=== PATIENT | male | born 1980 | race Hispanic/Latino ===

== ENCOUNTER 2020-03-31 00:26 | Inpatient (IN) | payer MEDICAID ==
--- NOTE | 2020-03-31 00:32 | Emergency Department Report ---
ED General Adult HPI - General Chief complaint: Dyspnea/Respdistress Stated complaint: DIFFICULTY BREATHING PUI?: Yes Source: patient, EMS (Verbal report received from emergency medical services. EMS documentation not available at time of chart dictation ), RN notes reviewed Mode of arrival: Stretcher Limitations: Physical Limitation - History of Present Illness Initial comments: Patient is a 39-year-old gentleman. He is not known to myself previously. He has a history of obesity, possible asthma, and psychiatric disease. He is brought to the hospital by emergency medical services with a complaint of shortness of breath. Apparently, patient was hypoxic in the field to 85%. He was given steroids, magnesium, and albuterol. In the emergency room, patient placed on isolation right away. I had on full personal protective equipment when examining this patient. On BiPAP, he was saturating at 98% on room air and speaking in complete sentences. He complained of nonspecific shortness of breath. He is a poor historian. He denies trauma. He is not sure if he is having fever. The patient could not answer whether or not he was socially isolating. The patient is a poor historian. He is not accompanied by friends or family at this time for additional information or collateral information. Clinically though, much improved on BiPAP therapy with appropriate medical therapy. -: unknown Consistency: constant Improves with: none Worsens with: none - Related Data Home Medications Medication Instructions Recorded Confirmed Last Taken Divalproex ER [Depakote ER] 500 mg PO BID 04/18/15 04/18/15 Unknown Quetiapine Fumarate [SEROquel] 04/18/15 04/18/15 2 Years Ago ~04/18/13 Allergies Allergy/AdvReac Type Severity Reaction Status Date / Time adhesive Allergy Rash Verified 11/30/14 04:32 ketorolac tromethamine Allergy Hives Verified 11/30/14 04:32 [From Toradol] tramadol HCl [From Ultram] Allergy Hives Verified 11/30/14 04:32 ED Review of Systems ROS: Stated complaint: DIFFICULTY BREATHING Other details as noted in HPI Comment: Unobtainable due to pts medical conditions Constitutional: malaise, weakness Respiratory: cough, shortness of breath, wheezing ED Past Medical Hx - Past Medical History Hx Renal Disease: Yes (Acute Renal Failure 2005) Hx Psychiatric Treatment: Yes (Can't recall where or when) Hx Asthma: Yes Additional medical history: ulcers. heart murmur. fall w/back injury 09/2015 - Social History Smoking Status: Never Smoker Substance Use Type: None - Medications Home Medications: Home Medications Medication Instructions Recorded Confirmed Last Taken Type Divalproex ER [Depakote ER] 500 mg PO BID 04/18/15 04/18/15 Unknown History Quetiapine Fumarate [SEROquel] 04/18/15 04/18/15 2 Years Ago History ~04/18/13 ED Physical Exam - General Limitations: Physical Limitation General appearance: anxious, in distress, obese - Head Head exam: Present: atraumatic, normocephalic - Eye Eye exam: Present: normal appearance - ENT ENT exam: Present: normal exam, mucous membranes moist, normal external ear exam - Neck Neck exam: Present: normal inspection, full ROM. Absent: tenderness, meni ngismus - Respiratory Respiratory exam: Present: wheezes, rales, rhonchi, accessory muscle use. Absent: respiratory distress, stridor - Cardiovascular Cardiovascular Exam: Present: normal rhythm, tachycardia, normal heart sounds. Absent: systolic murmur, diastolic murmur, rubs, gallop - GI/Abdominal GI/Abdominal exam: Present: soft. Absent: distended, tenderness, guarding, rebo und, rigid, pulsatile mass - Rectal Rectal exam: Present: deferred - Extremities Exam Extremities exam: Present: normal inspection, full ROM, pedal edema, other (2+ pulses noted in the bilateral upper and lower extremities. There is no palpable cord. negative Homans sign. Muscular compartments are soft. The pelvis is stable.). Absent: calf tenderness - Back Exam Back exam: Present: normal inspection. Absent: tenderness, CVA tenderness (R), CVA tenderness (L), paraspinal tenderness, vertebral tenderness - Neurological Exam Neurological exam: Present: alert, other (No facial droop. Tongue midline. Extraocular movements intact bilaterally. Facial sensation intact to light touch in V1, V2, V3 distribution bilaterally. 5 and a 5 strength in 4 extremities. Sensation intact to light touch in 4 extremities.) - Psychiatric Psychiatric exam: Present: anxious - Skin Skin exam: Present: warm, dry, intact, normal color. Absent: rash ED Course Vital Signs 03/31/20 03/31/20 03/31/20 00:37 01:01 01:47 Temperature 98.2 F Pulse Rate 135 H 136 H Pulse Rate [ 130 H Bilateral] Respiratory 34 H 22 Rate Respiratory 22 Rate [Bilateral ] Blood Pressure 194/72 169/91 Blood Pressure 194/72 [Right] O2 Sat by Pulse 99 99 Oximetry - Reevaluation(s) Reevaluation #1: 03/31/20 02:20 Differential diagnosis, including but not limited to: Pneumonia, novel coronavirus, fluid overload, asthma exacerbation, multifactorial respiratory failure Assessment and plan: 39-year-old gentleman who is a poor historian, presenting w ith respiratory distress requiring initiation of BiPAP therapy. He is afebrile but tachycardic, initially hypertensive, now resolved, appears to have lower extremity edema, x-ray the chest shows infiltrates, leukocytosis may be stress reaction or secondary to underlying infectious process, or all of the above. Patient placed on isolation for possible COVID. COVID labs have been ordered. Appreciate that patient is ruling in for systemic inflammatory response syndrome criteria, however, given evidence of volume overload, i.e. lower extremity edema, and pulmonary findings, and propensity for COVID disease to progress to acute respiratory distress syndrome, I will withhold 30 cc/kg bolus of IV fluids. We will continue albuterol, Atrovent, antibiotics, BiPAP therapy, and admit to the medical service. Reevaluation #2: 03/31/20 02:25 Dr Jon Mena to admit ED Medical Decision Making - Lab Data Result diagrams: 03/31/20 01:22 03/31/20 01:22 Vital Signs 03/31/20 03/31/20 03/31/20 00:37 01:01 01:47 Temperature 98.2 F Pulse Rate 135 H 136 H Pulse Rate [ 130 H Bilateral] Respiratory 34 H 22 Rate Respiratory 22 Rate [Bilateral ] Blood Pressure 194/72 169/91 Blood Pressure 194/72 [Right] O2 Sat by Pulse 99 99 Oximetry Lab Results 03/31/20 03/31/20 Range/Units 01:22 01:30 WBC 16.3 H (4.5-11.0) K/mm3 RBC 4.12 (3.65-5.03) M/mm3 Hgb 10.7 L (11.8-15.2) gm/dl Hct 33.3 L (35.5-45.6) % MCV 81 L (84-94) fl MCH 26 L (28-32) pg MCHC 32 (32-34) % RDW 15.7 H (13.2-15.2) % Plt Count 356 (140-440) K/mm3 Lymph % (Auto) 10.4 L (13.4-35.0) % [place] % (Auto) 6.9 (0.0-7.3) % Eos % (Auto) 1.8 (0.0-4.3) % Baso % (Auto) 0.5 (0.0-1.8) % Lymph # 1.7 (1.2-5.4) K/mm3 [place] # 1.1 H (0.0-0.8) K/mm3 Eos # 0.3 (0.0-0.4) K/mm3 Baso # 0.1 (0.0-0.1) K/mm3 Seg Neutrophils % 80.4 H (40.0-70.0) % Seg Neutrophils # 13.1 H (1.8-7.7) K/mm3 ABG pH 7.359 (7.350-7.450) pH Units ABG pCO2 50.9 mm Hg ABG pO2 163.5 H (80.0-90.0) mm Hg ABG HCO3 28.0 H (20.0-26.0) mmol/L ABG O2 Saturation 98.9 (95.0-99.0) % ABG O2 Content 15.0 (0.0-44) ABG Base Excess 2.0 (-2.0-3.0) mmol/L ABG Hemoglobin 10.8 L (14.0-18.0) gm/dl ABG Carboxyhemoglobin 1.9 (0.0-5.0) % ABG Methemoglobin 0.6 (0.0-1.5) % Oxyhemoglobin 96.5 (95.0-99.0) % FiO2 50 % Labs 03/31/20 03/31/20 03/31/20 01:22 01:22 01:22 WBC 16.3 H RBC 4.12 Hgb 10.7 L Hct 33.3 L MCV 81 L MCH 26 L MCHC 32 RDW 15.7 H Plt Count 356 Lymph % (Auto) 10.4 L [place] % (Auto) 6.9 Eos % (Auto) 1.8 Baso % (Auto) 0.5 Lymph # 1.7 [place] # 1.1 H Eos # 0.3 Baso # 0.1 Seg Neutrophils % 80.4 H Seg Neutrophils # 13.1 H APTT 21.2 L D-Dimer 528.56 H ABG pH ABG pCO2 ABG pO2 ABG HCO3 ABG O2 Saturation ABG O2 Content ABG Base Excess ABG Hemoglobin ABG Carboxyhemoglobin ABG Methemoglobin Oxyhemoglobin FiO2 Sodium 135 L Potassium 4.1 Chloride 96.4 L Carbon Dioxide 27 Anion Gap 16 BUN 14 Creatinine 0.5 L Estimated GFR > 60 BUN/Creatinine Ratio 28 Glucose 233 H Lactic Acid Calcium 8.5 Total Bilirubin < 0.20 AST 36 ALT 71 H Alkaline Phosphatase 117 NT-Pro-B Natriuret Pep Total Protein 6.9 Albumin 3.5 L Albumin/Globulin Ratio 1.0 Salicylates Acetaminophen 03/31/20 03/31/20 03/31/20 01:22 01:22 01:22 WBC RBC Hgb Hct MCV MCH MCHC RDW Plt Count Lymph % (Auto) [place] % (Auto) Eos % (Auto) Baso % (Auto) Lymph # [place] # Eos # Baso # Seg Neutrophils % Seg Neutrophils # APTT D-Dimer ABG pH ABG pCO2 ABG pO2 ABG HCO3 ABG O2 Saturation ABG O2 Content ABG Base Excess ABG Hemoglobin ABG Carboxyhemoglobin ABG Methemoglobin Oxyhemoglobin FiO2 Sodium Potassium Chloride Carbon Dioxide Anion Gap BUN Creatinine Estimated GFR BUN/Creatinine Ratio Glucose Lactic Acid 1.60 Calcium Total Bilirubin AST ALT Alkaline Phosphatase NT-Pro-B Natriuret Pep 110.1 Total Protein Albumin Albumin/Globulin Ratio Salicylates < 0.3 L Acetaminophen 03/31/20 03/31/20 01:22 01:30 WBC RBC Hgb Hct MCV MCH MCHC RDW Plt Count Lymph % (Auto) [place] % (Auto) Eos % (Auto) Baso % (Auto) Lymph # [place] # Eos # Baso # Seg Neutrophils % Seg Neutrophils # APTT D-Dimer ABG pH 7.359 ABG pCO2 50.9 ABG pO2 163.5 H ABG HCO3 28.0 H ABG O2 Saturation 98.9 ABG O2 Content 15.0 ABG Base Excess 2.0 ABG Hemoglobin 10.8 L ABG Carboxyhemoglobin 1.9 ABG Methemoglobin 0.6 Oxyhemoglobin 96.5 FiO2 50 Sodium Potassium Chloride Carbon Dioxide Anion Gap BUN Creatinine Estimated GFR BUN/Creatinine Ratio Glucose Lactic Acid Calcium Total Bilirubin AST ALT Alkaline Phosphatase NT-Pro-B Natriuret Pep Total Protein Albumin Albumin/Globulin Ratio Salicylates Acetaminophen < 5.0 L - EKG Data -: EKG Interpreted by Me EKG shows normal: sinus rhythm Rate: tachycardia - EKG Data 03/31/20 02:19 Sinus rhythm, tachycardia, normal axis, normal intervals, high left ventricular voltage, abnormal EKG, not a STEMI there is no prior EKG available for comparison at this time - Radiology Data Radiology results: report reviewed, image reviewed Print Report Referring Physician: LELA WOLF Patient Name: VINCENT FLETCHER Date of : 1980 Sex: Male Report Date: 2020-03-31 Report Status: Finalized Findings [facility] [address] [place] [address] XRay Report Signed Patient: VINCENT FLETCHER MR#: [id number] : 1980 Acct:[id number] Age/Sex: 39 / M ADM Date: 03/31/20 Loc: ED Attending Dr: Ordering Physician: LELA WOLF MD Date of Service: 03/31/20 Procedure(s): XR chest 1V ap Accession Number(s): [id number] cc: LELA WOLF MD Fluoro Time In Minutes: CHEST 1 VIEW INDICATION / CLINICAL INFORMATION: dyspnea. COMPARISON: None available. FINDINGS: SUPPORT DEVICES: None. HEART / MEDIASTINUM: No significant abnormality. LUNGS / PLEURA: Moderate bilateral airspace disease. Signer Name: Richy Salcedo MD Signed: 03/31/2020 1:27 AM Workstation Name: [id number] Transcribed By: BC Dictated By: Richy Salcedo MD Electronically Authenticated By: Richy Salcedo MD Signed Date/Time: 03/31/20126 DD/ 6 Critical Care Time: Yes Critical care time in (mins) excluding proc time.: 45 Critical care attestation.: If time is entered above; I have spent that time in minutes in the direct care of this critically ill patient, excluding procedure time. ED Disposition Clinical Impression: Acute respiratory failure, Suspected 2019 novel coronavirus infection Disposition: DC OP ADMIT IP TO THIS HOSP Is pt being admited?: Yes Does the pt Need Aspirin: No Condition: Serious Referrals: PRIMARY CARE, [Primary Care Provider] - 3-5 Days
[2020-03-31] MEDS ORDERED: cefTRIAXone/NS 2 GM/100 ML 2 GM/100 ML BAG IV ONE (01:20)
[2020-03-31] MEDS ORDERED: ALBUTEROL 2.5 MG/3 ML NEBU IH ONE (01:20)
[2020-03-31] MEDS ORDERED: IPRATROPIUM 0.02% NEBU 2.5 ML IH ONE (01:20)
--- NOTE | 2020-03-31 01:31 | XRay Report ---
CHEST 1 VIEW INDICATION / CLINICAL INFORMATION: dyspnea. COMPARISON: None available. FINDINGS: SUPPORT DEVICES: None. HEART / MEDIASTINUM: No significant abnormality. LUNGS / PLEURA: Moderate bilateral airspace disease. Signer Name: Richy Salcedo MD Signed: 03/31/2020 1:27 AM Workstation Name: [id number]
[2020-03-31 01:40] LABS: ABG Methemoglobin 0.6 % (0.0-1.5); ABG Oxygen Saturation 98.9 % (95.0-99.0); ABG PCO2 50.9 mm Hg; ABG PH 7.359 pH Units (7.350-7.450); ABG PO2 163.5 mm Hg (80.0-90.0)
[2020-03-31 02:05] LABS: Basophils # (Auto) 0.1 K/mm3 (0.0-0.1); Basophils % (Auto) 0.5 % (0.0-1.8); Eosinophils # (Auto) 0.3 K/mm3 (0.0-0.4); Eosinophils % (Auto) 1.8 % (0.0-4.3); Hematocrit 33.3 % (35.5-45.6); Hemoglobin 10.7 gm/dl (11.8-15.2); Lymphocytes # (Auto) 1.7 K/mm3 (1.2-5.4); Lymphocytes % (Auto) 10.4 % (13.4-35.0); Mean Corpuscular HGB Conc 32 % (32-34); Mean Corpuscular Volume 81 fl (84-94); Monocytes # (Auto) 1.1 K/mm3 (0.0-0.8); Monocytes % (Auto) 6.9 % (0.0-7.3); Platelet Count 356 K/mm3 (140-440); Red Blood Count 4.12 M/mm3 (3.65-5.03); Red Cell Distribution Width 15.7 % (13.2-15.2)
[2020-03-31] MEDS ORDERED: AZITHROMYCIN 500 MG in SODIUM CHLORIDE 0.9% 250ML 250 ML IV ONE (02:05)
[2020-03-31 02:15] LABS: Partial Thromboplastin Time 21.2 Sec. (24.2-36.6)
[2020-03-31 02:22] LABS: Alanine Aminotransferase 71 units/L (7-56); Albumin 3.5 g/dL (3.9-5); BUN/Creatinine Ratio 28; Blood Urea Nitrogen 14 mg/dL (9-20); Calcium 8.5 mg/dL (8.4-10.2); Hemolysis Index 21
[2020-03-31] MEDS ORDERED: ONDANSETRON 4 MG/2 ML INJ IV PRN (03:44)
[2020-03-31] MEDS ORDERED: ACETAMINOPHEN 325 MG TAB PO PRN (03:44)
[2020-03-31] MEDS ORDERED: MAGNESIUM HYDROXIDE (MOM) ORAL LIQD UDC PO PRN (03:44)
--- NOTE | 2020-03-31 04:01 | History and Physical Report ---
History of Present Illness Date of examination: 03/31/20 Date of admission: 03/31/20 02:26 Chief complaint: Shortness of breath Cough History of present illness: 39-year-old male with known history of asthma, depression and obesity brought into the emergency room today with a chief complaint of shortness of breath. Patient was also said to have been hypoxic with an O2 saturation of 85% en route to the hospital. Was given nebulizing treatments, magnesium and IV steroid. He denies any fever but had some chills, no nausea vomiting, no diarrhea, no chest pain, no headache or dizziness. Shortness of breath is said to have started a few days ago but got worse today. He has had some cough which is nonproductive. He denies any recent travel and no sick contacts. He denies contact with anyone with COVID-19. Upon arrival in the emergency room patient was into respiratory distress and was immediately placed on BiPAP. He had additional nebulizing treatments and states that he feels better. Work-up including chest x-ray reveals moderate bilateral airspace disease. Past History Past Medical History: other (Asthma, history of depression and schizophrenia, history of acute renal failure 2005, history of fall with back injury in 2014) Past Surgical History: No surgical history Social history: no significant social history Family history: no significant family history Medications and Allergies Allergies Allergy/AdvReac Type Severity Reaction Status Date / Time adhesive Allergy Rash Verified 11/30/14 04:32 ketorolac tromethamine Allergy Hives Verified 11/30/14 04:32 [From Toradol] tramadol HCl [From Ultram] Allergy Hives Verified 11/30/14 04:32 Home Medications Medication Instructions Recorded Confirmed Last Taken Type Divalproex ER [Depakote ER] 500 mg PO BID 04/18/15 04/18/15 Unknown History Quetiapine Fumarate [SEROquel] 04/18/15 04/18/15 2 Years Ago History ~04/18/13 Active Meds: Active Medications Acetaminophen (Tylenol) 650 mg PO Q6H PRN PRN Reason: Pain MILD(1-3)/Fever >100.5/[place] Albuterol/Ipratropium (Duoneb *Not For Prn Use*) 1 ampul IH Q6HRT [facility] Sodium Chloride (Nacl 0.9% 1000 Ml) 1,000 mls @ 125 mls/hr IV DIRECT [facility] Ceftriaxone Sodium (Rocephin/Ns 2 Gm/100 Ml) 2 gm in 100 mls @ 200 mls/hr IV Q24HR [facility]; Protocol Azithromycin 500 mg/ Sodium (Chloride) 250 mls @ 250 mls/hr IV Q24HR [facility]; Protocol Magnesium Hydroxide (Milk Of Magnesia) 30 ml PO Q4H PRN PRN Reason: Constipation Ondansetron HCl (Zofran) 4 mg IV Q8H PRN PRN Reason: Nausea And Vomiting Sodium Chloride (Sodium Chloride Flush Syringe 10 Ml) 10 ml IV BID [facility] Sodium Chloride (Sodium Chloride Flush Syringe 10 Ml) 10 ml IV PRN PRN PRN Reason: LINE FLUSH Review of Systems Constitutional: chills, no fever, no malaise Cardiovascular: no chest pain, no palpitations Respiratory: cough, shortness of breath, no congestion Gastrointestinal: no abdominal pain, no nausea, no vomiting, no diarrhea Genitourinary Male: no dysuria, no hematuria, no flank pain Musculoskeletal: no neck pain, no low back pain Integumentary: no rash, no pruritis Neurological: no headaches, no confusion Psychiatric: no anxiety, no disorientation Exam - Constitutional Vitals: Temp Pulse Resp BP Pulse Ox 98.2 F 121 H 21 148/62 99 03/31/20 00:37 03/31/20 02:30 03/31/20 02:30 03/31/20 02:30 03/31/20 01:30 General appearance: Present: mild distress, obese - EENT Eyes: Present: PERRL, EOM intact ENT: hearing intact, clear oral mucosa, dentition normal - Neck Neck: Present: supple, normal ROM - Respiratory Respiratory effort: normal Respiratory: bilateral: rales - Cardiovascular Rhythm: regular Heart Sounds: Present: S1 & S2 - Extremities Extremities: no ischemia, No edema, Full ROM Peripheral Pulses: within normal limits - Abdominal General gastrointestinal: Present: soft, non-tender, non-distended, normal bowel sounds - Integumentary Integumentary: Present: clear, warm, dry - Musculoskeletal Musculoskeletal: strength equal bilaterally - Psychiatric Psychiatric: appropriate mood/affect, intact judgment & insight - Neurologic Neurologic: CNII-XII intact, moves all extremities Results - Labs CBC & Chem 7: 03/31/20 01:22 03/31/20 01:22 Labs: Abnormal lab results 03/31/20 03/31/20 03/31/20 Range/Units 01:22 01:22 01:22 WBC 16.3 H (4.5-11.0) K/mm3 Hgb 10.7 L (11.8-15.2) gm/dl Hct 33.3 L (35.5-45.6) % MCV 81 L (84-94) fl MCH 26 L (28-32) pg RDW 15.7 H (13.2-15.2) % Lymph % (Auto) 10.4 L (13.4-35.0) % [place] # 1.1 H (0.0-0.8) K/mm3 Seg Neutrophils % 80.4 H (40.0-70.0) % Seg Neutrophils # 13.1 H (1.8-7.7) K/mm3 APTT 21.2 L (24.2-36.6) Sec. D-Dimer 528.56 H (0-234) ng/mlDDU ABG pO2 (80.0-90.0) mm Hg ABG HCO3 (20.0-26.0) mmol/L ABG Hemoglobin (14.0-18.0) gm/dl Sodium 135 L (137-145) mmol/L Chloride 96.4 L (98-107) mmol/L Creatinine 0.5 L (0.8-1.5) mg/dL Glucose 233 H (75-100) mg/dL ALT 71 H (7-56) units/L Lactate Dehydrogenase 274 H (91-180) units/L C-Reactive Protein 2.50 H (0.00-1.30) mg/dL Albumin 3.5 L (3.9-5) g/dL Salicylates (2.8-20.0) mg/dL Acetaminophen (10.0-30.0) ug/mL 03/31/20 03/31/20 03/31/20 Range/Units 01: 01: 01:30 WBC (4.5-11.0) K/mm3 Hgb (11.8-15.2) gm/dl Hct (35.5-45.6) % MCV (84-94) fl MCH (28-32) pg RDW (13.2-15.2) % Lymph % (Auto) (13.4-35.0) % [place] # (0.0-0.8) K/mm3 Seg Neutrophils % (40.0-70.0) % Seg Neutrophils # (1.8-7.7) K/mm3 APTT (24.2-36.6) Sec. D-Dimer (0-234) ng/mlDDU ABG pO2 163.5 H (80.0-90.0) mm Hg ABG HCO3 28.0 H (20.0-26.0) mmol/L ABG Hemoglobin 10.8 L (14.0-18.0) gm/dl Sodium (137-145) mmol/L Chloride (98-107) mmol/L Creatinine (0.8-1.5) mg/dL Glucose (75-100) mg/dL ALT (7-56) units/L Lactate Dehydrogenase (91-180) units/L C-Reactive Protein (0.00-1.30) mg/dL Albumin (3.9-5) g/dL Salicylates < 0.3 L (2.8-20.0) mg/dL Acetaminophen < 5.0 L (10.0-30.0) ug/mL Assessment and Plan - Patient Problems (1) Acute respiratory failure Current Visit: Yes Status: Acute Plan to address problem: Probably secondary to the bilateral airspace disease. Patient will be empirically treated for pneumonia. We await blood culture results. Patient currently placed on BiPAP. Patient also has known history of asthma. We will give nebulizing treatments as needed. We will place a consult to master black belt for further evaluation and recommendation. (2) Suspected 2019 novel coronavirus infection Current Visit: Yes Status: Acute Plan to address problem: Patient placed on droplet precautions. We will place a consult to infectious disease for further evaluation and recommendation. (3) Body mass index (BMI) greater than 40 Current Visit: Yes Status: Acute Plan to address problem: We will request Dietary consult prior to discharge (4) DVT prophylaxis Current Visit: Yes Status: Acute Plan to address problem: Patient placed on subcutaneous heparin. (5) Full code status Current Visit: Yes Status: Acute
[2020-03-31] MEDS: SODIUM CHLORIDE 0.9% 1000 ML 1,000 ML IV SCH ×2 (04:54→21:02)
[2020-03-31] MEDS: IPRATROPIUM/ALBUTEROL SULFATE 3 ML AMPUL.NEB IH SCH ×3 (08:25→21:05)
[2020-03-31] MEDS ORDERED: SODIUM CHLORIDE 0.9% 1000 ML 1,000 ML IV ONE (08:32)
[2020-03-31] MEDS: cefTRIAXone/NS 2 GM/100 ML 2 GM/100 ML BAG IV SCH (09:28)
[2020-03-31] MEDS: AZITHROMYCIN 500 MG in SODIUM CHLORIDE 0.9% 250ML 250 ML IV SCH (09:29)
[2020-03-31] MEDS: HEPARIN 5,000 UNIT/1 ML VIAL SUB-Q SCH ×2 (09:30→17:21)
[2020-03-31 11:23] LABS: Bilirubin,Urine NEG (Negative); Blood,Urine NEG (Negative); Color,Urine Yellow (Yellow); Protein,Urine <15 mg/dL mg/dL (Negative); RBC,Urine < 1.0 /HPF (0.0-6.0); Urobilinogen,Urine < 2.0 mg/dL (<2.0); WBC,Urine < 1.0 /HPF (0.0-6.0)
--- NOTE | 2020-03-31 11:58 | Event Note ---
Date: 03/31/20 patient seen and examined, reports chronic back pain and on methadone at home. will restart at half the dose as patient is lethargic. Monitor Mental status, discussed with Nursing staff.
--- NOTE | 2020-03-31 15:16 | Consultation ---
History of Present Illness Consult date: 03/31/20 Requesting physician: AMISHA MARTINEZ Reason for consult: pneumonia, other (PUI COVID-19) History of present illness: PULMONARY/CCM CONSULT NOTE (Full dictation # [id number]) Please see dictated notes for full details Past History Past Medical History: other (Asthma, history of depression and schizophrenia, history of acute renal failure 2005, history of fall with back injury in 2014) Past Surgical History: No surgical history Social history: no significant social history Family history: no significant family history Medications and Allergies Allergies Allergy/AdvReac Type Severity Reaction Status Date / Time adhesive Allergy Rash Verified 11/30/14 04:32 ketorolac tromethamine Allergy Hives Verified 11/30/14 04:32 [From Toradol] tramadol HCl [From Ultram] Allergy Hives Verified 11/30/14 04:32 Home Medications Medication Instructions Recorded Confirmed Last Taken Type Divalproex ER [Depakote ER] 500 mg PO BID 04/18/15 04/18/15 Unknown History Quetiapine Fumarate [SEROquel] 04/18/15 04/18/15 2 Years Ago History ~04/18/13 Active Meds: Active Medications Acetaminophen (Tylenol) 650 mg PO Q6H PRN PRN Reason: Pain MILD(1-3)/Fever >100.5/[place] Last Admin: 03/31/20 06:11 Dose: 650 mg Documented by: Albuterol/Ipratropium (Duoneb *Not For Prn Use*) 1 ampul IH Q6HRT [facility] Last Admin: 03/31/20 08:25 Dose: 1 ampul Documented by: Heparin Sodium (Porcine) (Heparin) 5,000 unit SUB-Q Q8H [facility] Last Admin: 03/31/20 09:30 Dose: 5,000 unit Documented by: Sodium Chloride (Nacl 0.9% 1000 Ml) 1,000 mls @ 125 mls/hr IV DIRECT [facility] Last Admin: 03/31/20 04:54 Dose: 125 mls/hr Documented by: Ceftriaxone Sodium (Rocephin/Ns 2 Gm/100 Ml) 2 gm in 100 mls @ 200 mls/hr IV Q24HR [facility]; Protocol Last Admin: 03/31/20 09:28 Dose: 200 mls/hr Documented by: Azithromycin 500 mg/ Sodium (Chloride) 250 mls @ 250 mls/hr IV Q24HR [facility]; Pr otocol Last Admin: 03/31/20 09:29 Dose: 250 mls/hr Documented by: Magnesium Hydroxide (Milk Of Magnesia) 30 ml PO Q4H PRN PRN Reason: Constipation Ondansetron HCl (Zofran) 4 mg IV Q8H PRN PRN Reason: Nausea And Vomiting Sodium Chloride (Sodium Chloride Flush Syringe 10 Ml) 10 ml IV BID [facility] Last Admin: 03/31/20 09:29 Dose: 10 ml Documented by: Sodium Chloride (Sodium Chloride Flush Syringe 10 Ml) 10 ml IV PRN PRN PRN Reason: LINE FLUSH Physical Examination Vital signs: Vital Signs Pulse Resp 141 H 28 H 03/31/20 00:32 03/31/20 00:32 Results - Laboratory Findings CBC and BMP: 03/31/20 01:22 03/31/20 01:22 ABG ABG pH 7.359 pH Units (7.350-7.450) 03/31/20 01:30 ABG pCO2 50.9 mm Hg 03/31/20 01:30 ABG pO2 163.5 mm Hg (80.0-90.0) H 03/31/20 01:30 ABG O2 Saturation 98.9 % (95.0-99.0) 03/31/20 01:30 PT/INR, D-dimer D-Dimer 528.56 ng/mlDDU (0-234) H 03/31/20 01:22 Abnormal lab findings: Abnormal Labs 03/31/20 03/31/20 03/31/20 01:22 01:22 01:22 WBC 16.3 H Hgb 10.7 L Hct 33.3 L MCV 81 L MCH 26 L RDW 15.7 H Lymph % (Auto) 10.4 L [place] # 1.1 H Seg Neutrophils % 80.4 H Seg Neutrophils # 13.1 H APTT 21.2 L D-Dimer 528.56 H ABG pO2 ABG HCO3 ABG Hemoglobin Sodium 135 L Chloride 96.4 L Creatinine 0.5 L Glucose 233 H Lactic Acid ALT 71 H Lactate Dehydrogenase 274 H C-Reactive Protein 2.50 H Albumin 3.5 L Salicylates Acetaminophen 03/31/20 03/31/20 03/31/20 01:22 01:22 01:30 WBC Hgb Hct MCV MCH RDW Lymph % (Auto) [place] # Seg Neutrophils % Seg Neutrophils # APTT D-Dimer ABG pO2 163.5 H ABG HCO3 28.0 H ABG Hemoglobin 10.8 L Sodium Chloride Creatinine Glucose Lactic Acid ALT Lactate Dehydrogenase C-Reactive Protein Albumin Salicylates < 0.3 L Acetaminophen < 5.0 L 03/31/20 03/31/20 03/31/20 05:55 07:29 09:25 WBC Hgb Hct MCV MCH RDW Lymph % (Auto) [place] # Seg Neutrophils % Seg Neutrophils # APTT D-Dimer ABG pO2 ABG HCO3 ABG Hemoglobin Sodium Chloride Creatinine Glucose Lactic Acid 3.10 H* 3.40 H* 3.30 H* ALT Lactate Dehydrogenase C-Reactive Protein Albumin Salicylates Acetaminophen
[2020-03-31] MEDS ORDERED: SODIUM CHLORIDE 0.9% 1000 ML 1,000 ML IV SCH (16:30)
[2020-03-31] MEDS: clonazePAM 0.5 MG TAB PO SCH (20:55)
[2020-03-31] MEDS: METHADONE 10 MG TAB PO SCH (20:56)
[2020-04-01] MEDS: HEPARIN 5,000 UNIT/1 ML VIAL SUB-Q SCH ×2 (00:20→07:30)
--- NOTE | 2020-04-01 00:51 | Consultation ---
PULMONARY CRITICAL CARE CONSULT NOTE REASON FOR CONSULTATION: Acute hypoxemic respiratory failure, suspected COVID-19 infection. CHIEF COMPLAINT AND HISTORY OF PRESENT ILLNESS: The patient is a 39-year-old male with past medical history significant amongst other things for a diagnosis of obesity as well as asthma, also on chronic pain medication including methadone came into the Emergency Room complaining of shortness of breath. He was hypoxemic at 85% on room air. He denied fevers. He has had some chills. He denied nausea, vomiting, or overt aspiration. Denied any diarrhea. Denied rhinorrhea or any upper respiratory tract symptoms. He has chronic pain issues, but denies anything out of the ordinary. Cough was mostly dry. He denied any gross or streaky hemoptysis. He denies contact with anyone with known COVID-19 infection. He denies fevers or chills. In the ER, he required bilevel positive air pressure ventilation therapy to improve his respiratory status. The patient was treated also for possible asthma exacerbation, but also was placed on the coronavirus COVID-19 isolation precautions and we were consulted to assist with respiratory issues. When I stopped by to see him, he was resting in bed. He confirmed the history mentioned above. When asked about tobacco use or abuse history, he denies tobacco use or abuse. This really is as much of the history of presentation as I have. I should note that the patient was lethargic during my evaluation, but was able to give me a history. He states that he has not had his methadone or his Klonopin today. Denies a history of withdrawal symptoms. PAST MEDICAL HISTORY: Again, significant for asthma, depression, schizophrenia, history of acute kidney injury in 2006, history of back injury in 2014. PAST SURGICAL HISTORY: Denies. MEDICATIONS: He was on at the time I stopped by to see him were reviewed, pertinent medications include the following: Tylenol 650 mg p.o. q. 6 hours p.r.n. mild pain or fevers, DuoNeb nebulizer treatments q.6 hours, Zithromax 500 mg IV daily, Rocephin 2 g IV daily, heparin 5000 units subcutaneous q.8 hours, Zofran 4 mg IV q. 8 hours p.r.n. nausea and vomiting. ALLERGIES: TO ADHESIVES, TO KETOROLAC, TO TRAMADOL. Nature of this allergy is unknown. DIET: Obese gentleman. Denies acute weight loss or gain in the preceding few weeks to months. FAMILY AND SOCIAL HISTORY: Lives in the community. Denies current alcohol, tobacco, illicit drug use or abuse. Otherwise denies any significant family history. REVIEW OF SYSTEMS: No loss of consciousness. No new onset seizures. No new onset focal weakness. Denies gross hematochezia or melena. Denies gross hematuria or dysuria. He had a dry cough. No hematemesis. No hemoptysis. Denies polydipsia or polyuria. Denies heat or cold intolerance. Complete 13-system review of systems obtained. Pertinent positives and/or negatives as in body of history above, otherwise they are unobtainable or noncontributory. PHYSICAL EXAMINATION: VITAL SIGNS: At presentation, he is afebrile, temperature 98.2 degrees Fahrenheit; however, since he has a T-max of 100.2 degrees Fahrenheit, admission pulse was 141, respiratory rate 34, blood pressure 194/72, O2 sats were 98%, inspired oxygen concentration at that time was not recovered. When I stopped by to see her, O2 sats were 97% on 2 liters nasal cannula. GENERAL: Obese, middle-aged male, normocephalic, atraumatic, lethargic, talking with me with full sentences, but with mildly increased respiratory effort at rest. HEAD, EYES, EARS, NOSE AND THROAT: He is anicteric. No conjunctival erythema. Oropharynx is moist. Mallampati #4 oropharynx. He has a large neck circumference. No gross jugular venous distention, no thyromegaly. NECK: Grossly, there were no palpable lymph nodes in the supraclavicular or submandibular lymph node chains. LUNGS: Auscultation of both lung kelly significant mostly for diminished bilateral breath sounds, prolonged expiratory phase, clear at the time of my evaluation. HEART: Heart sounds 1 and 2 are heard. They were regular in rate and rhythm at the time of my evaluation without overt rubs or murmurs. ABDOMEN: Soft, full, bowel sounds are positive, nontender, no palpable hepatosplenomegaly. EXTREMITIES: Without overt digital clubbing or cyanosis. No pedal edema. Pedal pulses are 2+ bilaterally. NEUROLOGIC: Pupils are equal, round, about 4 mm, reactive to light. Extraocular muscle movements were intact. He moves all 4 extremities spontaneously. He was somnolent to lethargic. SKIN: Normal turgor without overt cellulitis or rash in the areas examined. PSYCHIATRIC: His mood and affect was somewhat depressed. LABORATORY DATA: From my review are as follows: Admission white cell count 16,300, hemoglobin 10.7, hematocrit 33.3, platelet count 356. No manual differential. He has a lymphopenia. D-dimer elevated at 528. ABG showed a pH of 7.36, pCO2 of 51, pO2 of 163 that was on 50% FiO2. Serum sodium was 134, potassium 4.1, chloride 96, bicarbonate 27, BUN 14, creatinine 0.5, glucose was 233. Lactic acid level was 1.6, which was since increased to 3.3, ferritin within normal limits. ALT up at 71. CRP 2.5. Procalcitonin less than 0.05. Two sets of blood cultures, no growth to date. Chest x-ray was done. I have reviewed the images as well as the radiologist's interpretation. It does show bilateral scattered infiltrates without overt consolidation, no pneumothorax, no gross bony fracture. He also has borderline cardiomegaly. ASSESSMENT: 1. Acute hypoxemic respiratory failure. 2. Bilateral pneumonia. 3. Possible COVID-19 infection. 4. Morbid obesity. 5. Systemic inflammatory response syndrome, probable early sepsis. 6. History of asthma. 7. Schizophrenia. 8. History of depression. 9. History of chronic pain. 10. Anemia that is microcytic. 11. Elevated D-dimer. 12. Lactic acidosis. 13. Obesity hypoventilation syndrome with compensated hypercapnia. PLAN: We will continue contact and airborne precautions. COVID-19 testing will be ordered and sent. I do agree with empiric community-acquired pneumonia coverage. I will put him on a quick run of IV fluids for the lactic acidosis. No clinical signs of volume overload in this gentleman at this time. I will defer the anemia workup to the attending physician. We will follow the coronavirus testing. Weight loss has been counseled. Continued tobacco abstinence has been encouraged. He will benefit from Pulmonary Clinic and Sleep Clinic evaluation post-discharge. We will continue bronchodilators, short-acting bronchodilators as ordered. He is appropriately in isolation. He is appropriately on DVT prophylaxis. He will also be placed on GI prophylaxis. Flu and pneumonia vaccination will be assessed per protocol. Oxygen will be weaned to keep sats greater than or equal to about 92%. Target 92-96%. Finally, I have explained to him that Klonopin and methadone all can depress his respiratory drive and we will treat him symptomatically. He should let us know, if he feels like he is having any withdrawal type symptoms or he is in significant pain. Thank you very much for the consult. We will follow along and make further recommendations as picture progresses/becomes clearer. JOB# [id number] SUNITHA/ANGEL JORDAN
[2020-04-01] MEDS: IPRATROPIUM/ALBUTEROL SULFATE 3 ML AMPUL.NEB IH SCH ×2 (01:31→08:01)
[2020-04-01 05:56] LABS: Basophils % (Auto) 0.1 % (0.0-1.8); Hematocrit 30.9 % (35.5-45.6); Hemoglobin 9.7 gm/dl (11.8-15.2); Lymphocytes # (Auto) 1.7 K/mm3 (1.2-5.4); Lymphocytes % (Auto) 8.7 % (13.4-35.0); Mean Corpuscular HGB Conc 31 % (32-34); Mean Corpuscular Volume 82 fl (84-94); Monocytes # (Auto) 1.2 K/mm3 (0.0-0.8); Monocytes % (Auto) 6.2 % (0.0-7.3); Platelet Count 347 K/mm3 (140-440); Red Blood Count 3.78 M/mm3 (3.65-5.03); Red Cell Distribution Width 15.5 % (13.2-15.2)
[2020-04-01 06:05] LABS: INR 1.02 (0.87-1.13)
[2020-04-01 06:13] LABS: BUN/Creatinine Ratio 26; Blood Urea Nitrogen 13 mg/dL (9-20); Calcium 8.9 mg/dL (8.4-10.2); Hemolysis Index 2
[2020-04-01] MEDS: clonazePAM 0.5 MG TAB PO SCH (08:28)
[2020-04-01] MEDS: AZITHROMYCIN 500 MG in SODIUM CHLORIDE 0.9% 250ML 250 ML IV SCH (09:35)
[2020-04-01] MEDS: cefTRIAXone/NS 2 GM/100 ML 2 GM/100 ML BAG IV SCH (09:35)
[2020-04-01] MEDS: METHADONE 10 MG TAB PO SCH (09:58)
[2020-04-01] MEDS ORDERED: FAMOTIDINE 20 MG TAB PO SCH (10:00)
--- NOTE | 2020-04-01 11:12 | Consultation ---
History of Present Illness - Reason for Consult Consult date: 04/01/20 Pneumonia r/o COVID-19 Requesting physician: AMISHA MARTINEZ - History of Present Illness The patient is a 39-year-old male with asthma, depression, obesity was admitted to the hospital with complaints of shortness of breath. He was noted to be hypoxic. Chest x-ray showed bilateral airspace disease concerning for pneumonia. He was noted to have low-grade fevers and mild hypoxia requiring oxygen by nasal cannula. Labs showed leukocytosis and lactate elevation. CRP was minimally elevated. Ferritin is normal. Infectious diseases was consulted for additional evaluation and to rule out COVID-19. Procalcitonin is less than 0.05 Review of Systems: reviewed in the chart, unable to obtain directly due to PPE shortage and preservation Past History Past Medical History: other (Asthma, history of depression and schizophrenia, history of acute renal failure 2005, history of fall with back injury in 2014) Past Surgical History: No surgical history Social history: no significant social history Family history: no significant family history Medications and Allergies Allergies Allergy/AdvReac Type Severity Reaction Status Date / Time adhesive Allergy Rash Verified 11/30/14 04:32 ketorolac tromethamine Allergy Hives Verified 11/30/14 04:32 [From Toradol] tramadol HCl [From Ultram] Allergy Hives Verified 11/30/14 04:32 Home Medications Medication Instructions Recorded Confirmed Last Taken Type Methadone HCl [Methadone Intensol] 150 mg PO DAILY 03/31/20 03/31/20 03/30/20 History clonazePAM [Klonopin] 1 mg PO QID 03/31/20 03/31/20 03/30/20 History Amoxicillin/Potassium Clav 1 each PO BID #14 tablet 04/01/20 Unknown Rx [Augmentin 875-125 Tablet] Ipratropium/Albuterol Sulfate 1 ampul IH Q6HRT #90 ampul.neb 04/01/20 Unknown R x [DUONEB *Not for PRN Use*] Prednisone [predniSONE 10 mg 10 mg PO .TAPER #1 tab.ds.pk 04/01/20 Unknown Rx (6-Day Pack, 21 Tabs)] Active Meds: Active Medications Acetaminophen (Tylenol) 650 mg PO Q6H PRN PRN Reason: Pain MILD(1-3)/Fever >100.5/[place] Last Admin: 03/31/20 06:11 Dose: 650 mg Documented by: Albuterol/Ipratropium (Duoneb *Not For Prn Use*) 1 ampul IH Q6HRT [facility] Last Admin: 04/01/20 08:01 Dose: 1 ampul Documented by: Clonazepam (Klonopin) 1 mg PO TID [facility] Last Admin: 04/01/20 08:28 Dose: 1 mg Documented by: Famotidine (Pepcid) 20 mg PO QDAY [facility] Last Admin: 04/01/20 09:35 Dose: 20 mg Documented by: Heparin Sodium (Porcine) (Heparin) 5,000 unit SUB-Q Q8H [facility] Last Admin: 04/01/20 07:30 Dose: 5,000 unit Documented by: Sodium Chloride (Nacl 0.9% 1000 Ml) 1,000 mls @ 125 mls/hr IV DIRECT [facility] Last Admin: 03/31/20 21:02 Dose: 125 mls/hr Documented by: Ceftriaxone Sodium (Rocephin/Ns 2 Gm/100 Ml) 2 gm in 100 mls @ 200 mls/hr IV Q24HR [facility]; Protocol Last Admin: 04/01/20 09:35 Dose: 200 mls/hr Documented by: Azithromycin 500 mg/ Sodium (Chloride) 250 mls @ 250 mls/hr IV Q24HR [facility]; Protocol Last Admin: 04/01/20 09:35 Dose: 250 mls/hr Documented by: Sodium Chloride (Nacl 0.9% 1000 Ml) 1,000 mls @ 100 mls/hr IV DIRECT [facility] Stop: 04/02/20 02:29 Magnesium Hydroxide (Milk Of Magnesia) 30 ml PO Q4H PRN PRN Reason: Constipation Methadone HCl (Dolophine) 100 mg PO DAILY [facility] Last Admin: 04/01/20 09:58 Dose: 100 mg Documented by: Ondansetron HCl (Zofran) 4 mg IV Q8H PRN PRN Reason: Nausea And Vomiting Sodium Chloride (Sodium Chloride Flush Syringe 10 Ml) 10 ml IV BID [facility] Last Admin: 04/01/20 09:36 Dose: 10 ml Documented by: Sodium Chloride (Sodium Chloride Flush Syringe 10 Ml) 10 ml IV PRN PRN PRN Reason: LINE FLUSH Physical Examination - Physical Exam Narrative exam: Physical Exam (reviewed in chart due to PPE conservation) Constitutional: limited due to PPE conservation strategy Head, Ears, Nose: limited due to PPE conservation strategy Eyes: limited due to PPE conservation strategy Neck: limited due to PPE conservation strategy Oral: limited due to PPE conservation strategy Cardiovascular: limited due to PPE conservation strategy Respiratory: limited due to PPE conservation strategy GI: limited due to PPE conservation strategy Musculoskeletal: limited due to PPE conservation strategy Skin: limited due to PPE conservation strategy Hem/Lymphatic: limited due to PPE conservation strategy Psych: limited due to PPE conservation strategy Neurological: limited due to PPE conservation strategy - Constitutional Vitals: Vital Signs Temp Pulse Resp BP Pulse Ox 98.0 F 94 H 13 103/52 91 04/01/20 08:00 04/01/20 10:00 04/01/20 10:00 04/01/20 10:00 04/01/20 10:00 Temperature -Last 24 Hours Temperature 98.0 F Temperature 98.2 F Temperature 97.3 F Temperature 97 F Temperature 97.8 F Temperature 98.3 F Results - Labs CBC & Chem 7: 04/01/20 04:49 04/01/20 04:49 Labs: Abnormal lab results 04/01/20 04/01/20 Range/Units 04:49 04:49 WBC 19.1 H (4.5-11.0) K/mm3 Hgb 9.7 L (11.8-15.2) gm/dl Hct 30.9 L (35.5-45.6) % MCV 82 L (84-94) fl MCH 26 L (28-32) pg MCHC 31 L (32-34) % RDW 15.5 H (13.2-15.2) % Lymph % (Auto) 8.7 L (13.4-35.0) % [place] # 1.2 H (0.0-0.8) K/mm3 Seg Neutrophils % 85.0 H (40.0-70.0) % Seg Neutrophils # 16.2 H (1.8-7.7) K/mm3 Creatinine 0.5 L (0.8-1.5) mg/dL Glucose 118 H (75-100) mg/dL - Imaging and Cardiology Chest x-ray: report reviewed, image reviewed (b/l air space disease) Assessment and Plan Cultures: 03/31/2020 blood culture: No growth A/P: 39-year-old male with asthma, depression, obesity: #Bilateral pneumonia: Awaiting COVID-19 PCR. Inflammatory markers not very elevated. #Acute hypoxic respiratory failure: On oxygen by nasal cannula #Morbid obesity Recs: Follow-up coronavirus PCR Continue empiric antibiotics: Ceftriaxone and Azithromycin Continue isolation Ignacio Santos MD, FACP [facility] ([facility] C: [phone] O: [phone] F: [phone]
--- NOTE | 2020-04-01 12:11 | Progress Note ---
Assessment and Plan Assessment and plan: 39-year-old male with known history of asthma, depression and obesity brought into the emergency room today with a chief complaint of shortness of breath. Patient was also said to have been hypoxic with an O2 saturation of 85% en route to the hospital. Was given nebulizing treatments, magnesium and IV steroid. He denies any fever but had some chills, no nausea vomiting, no diarrhea, no chest pain, no headache or dizziness. Shortness of breath is said to have started a few days ago but got worse today. He has had some cough which is nonproductive. He denies any recent travel and no sick contacts. He denies contact with anyone with COVID-19. Upon arrival in the emergency room patient was into respiratory distress and was immediately placed on BiPAP. He had additional nebulizer treatments and states that he feels better. Work-up including chest x-ray reveals moderate bilateral airspace disease. Acute Hypoxic Respiratory Failure Suspected 2019 Novel Coronavirus Infection Bilateral Pneumonia Morbid Obesity Anemia Plan Continue supportive care Clinically improved and stable, mildly elevated Leukocytosis with Counselling Provided to the patient about trying to leave AMA Continue abx, await Coronavirus test Lactic Acidosis DVT/GI prophy History Interval history: Patient seen and examined, resting comfortable, reports some improvement at this time. Hospitalist Physical - Constitutional Vitals: Temp Pulse Resp BP Pulse Ox 98.0 F 97 H 12 103/52 90 04/01/20 08:00 04/01/20 11:00 04/01/20 11:00 04/01/20 11:00 04/01/20 11:00 General appearance: Present: mild distress, obese Results - Labs CBC & Chem 7: 04/01/20 04:49 04/01/20 04:49 Labs: Laboratory Last Values WBC 19.1 K/mm3 (4.5-11.0) H 04/01/20 04:49 RBC 3.78 M/mm3 (3.65-5.03) 04/01/20 04:49 Hgb 9.7 gm/dl (11.8-15.2) L 04/01/20 04:49 Hct 30.9 % (35.5-45.6) L 04/01/20 04:49 MCV 82 fl (84-94) L 04/01/20 04:49 MCH 26 pg (28-32) L 04/01/20 04:49 MCHC 31 % (32-34) L 04/01/20 04:49 RDW 15.5 % (13.2-15.2) H 04/01/20 04:49 Plt Count 347 K/mm3 (140-440) 04/01/20 04:49 Lymph % (Auto) 8.7 % (13.4-35.0) L 04/01/20 04:49 [place] % (Auto) 6.2 % (0.0-7.3) 04/01/20 04:49 Eos % (Auto) 0.0 % (0.0-4.3) 04/01/20 04:49 Baso % (Auto) 0.1 % (0.0-1.8) 04/01/20 04:49 Lymph # 1.7 K/mm3 (1.2-5.4) 04/01/20 04:49 [place] # 1.2 K/mm3 (0.0-0.8) H 04/01/20 04:49 Eos # 0.0 K/mm3 (0.0-0.4) 04/01/20 04:49 Baso # 0.0 K/mm3 (0.0-0.1) 04/01/20 04:49 Seg Neutrophils % 85.0 % (40.0-70.0) H 04/01/20 04:49 Seg Neutrophils # 16.2 K/mm3 (1.8-7.7) H 04/01/20 04:49 PT 13.5 Sec. (12.2-14.9) 04/01/20 04:49 INR 1.02 (0.87-1.13) 04/01/20 04:49 APTT 21.2 Sec. (24.2-36.6) L 03/31/20 01:22 D-Dimer 528.56 ng/mlDDU (0-234) H 03/31/20 01:22 ABG pH 7.359 pH Units (7.350-7.450) 03/31/20 01:30 ABG pCO2 50.9 mm Hg 03/31/20 01:30 ABG pO2 163.5 mm Hg (80.0-90.0) H 03/31/20 01:30 ABG HCO3 28.0 mmol/L (20.0-26.0) H 03/31/20 01:30 ABG O2 Saturation 98.9 % (95.0-99.0) 03/31/20 01:30 ABG O2 Content 15.0 (0.0-44) 03/31/20 01:30 ABG Base Excess 2.0 mmol/L (-2.0-3.0) 03/31/20 01:30 ABG Hemoglobin 10.8 gm/dl (14.0-18.0) L 03/31/20 01:30 ABG Carboxyhemoglobin 1.9 % (0.0-5.0) 03/31/20 01:30 ABG Methemoglobin 0.6 % (0.0-1.5) 03/31/20 01:30 Oxyhemoglobin 96.5 % (95.0-99.0) 03/31/20 01:30 FiO2 50 % 03/31/20 01:30 Sodium 141 mmol/L (137-145) 04/01/20 04:49 Potassium 4.7 mmol/L (3.6-5.0) 04/01/20 04:49 Chloride 101.7 mmol/L (98-107) 04/01/20 04:49 Carbon Dioxide 29 mmol/L (22-30) 04/01/20 04:49 Anion Gap 15 mmol/L 04/01/20 04:49 BUN 13 mg/dL (9-20) 04/01/20 04:49 Creatinine 0.5 mg/dL (0.8-1.5) L 04/01/20 04:49 Estimated GFR > 60 ml/min 04/01/20 04:49 BUN/Creatinine Ratio 26 % 04/01/20 04:49 Glucose 118 mg/dL (75-100) H 04/01/20 04:49 Lactic Acid 0.70 mmol/L (0.7-2.0) 04/01/20 04:49 Calcium 8.9 mg/dL (8.4-10.2) 04/01/20 04:49 Ferritin 36.3 ng/mL (13.0-400.0) 03/31/20 01:22 Total Bilirubin < 0.20 mg/dL (0.1-1.2) 03/31/20 01:22 AST 36 units/L (5-40) 03/31/20 01:22 ALT 71 units/L (7-56) H 03/31/20 01:22 Alkaline Phosphatase 117 units/L (35-129) 03/31/20 01:22 Lactate Dehydrogenase 274 units/L (91-180) H 03/31/20 01:22 C-Reactive Protein 2.50 mg/dL (0.00-1.30) H 03/31/20 01:22 NT-Pro-B Natriuret Pep 110.1 pg/mL (0-450) 03/31/20 01:22 Total Protein 6.9 g/dL (6.3-8.2) 03/31/20 01:22 Albumin 3.5 g/dL (3.9-5) L 03/31/20 01:22 Albumin/Globulin Ratio 1.0 % 03/31/20 01:22 Procalcitonin < 0.05 ng/mL (<0.15) 03/31/20 01:22 Urine Color Yellow (Yellow) 03/31/20 10:55 Urine Turbidity Clear (Clear) 03/31/20 10:55 Urine pH 5.0 (5.0-7.0) 03/31/20 10:55 Ur Specific [place] 1.018 (1.003-1.030) 03/31/20 10:55 Urine Protein <15 mg/dl mg/dL (Negative) 03/31/20 10:55 Urine Glucose (UA) 50 mg/dL (Negative) 03/31/20 10:55 Urine Ketones Neg mg/dL (Negative) 03/31/20 10:55 Urine Blood Neg (Negative) 03/31/20 10:55 Urine Nitrite Neg (Negative) 03/31/20 10:55 Urine Bilirubin Neg (Negative) 03/31/20 10:55 Urine Urobilinogen < 2.0 mg/dL (<2.0) 03/31/20 10:55 Ur Leukocyte Esterase Neg (Negative) 03/31/20 10:55 Urine WBC (Auto) < 1.0 /HPF (0.0-6.0) 03/31/20 10:55 Urine RBC (Auto) < 1.0 /HPF (0.0-6.0) 03/31/20 10:55 Salicylates < 0.3 mg/dL (2.8-20.0) L 03/31/20 01:22 Acetaminophen < 5.0 ug/mL (10.0-30.0) L 03/31/20 01:22 Microbiology: Microbiology 03/31/20 01:22 Peripheral/Venous Blood Culture - Preliminary NO GROWTH AFTER 24 HOURS 03/31/20 01:22 Peripheral/Venous Blood Culture - Preliminary NO GROWTH AFTER 24 HOURS Smiley/IV: Voiding Method Urinal IV Catheter Type [Left Wrist] Peripheral IV Active Medications - Current Medications Current Medications: Generic Name Dose Route Start Last Admin Trade Name Freq PRN Reason Stop Dose Admin Acetaminophen 650 mg 03/31/20 03:44 03/31/20 06:11 Tylenol PO 650 mg Q6H PRN Administration Pain MILD(1-3)/Fever >100.5/[place] Albuterol/Ipratropium 1 ampul 03/31/20 08:00 04/01/20 08:01 Duoneb *Not For Prn Use* IH 1 ampul Q6HRT [facility] Administration Clonazepam 1 mg 03/31/20 20:00 04/01/20 08:28 Klonopin PO 1 mg TID [facility] Administration Famotidine 20 mg 04/01/20 10:00 04/01/20 09:35 Pepcid PO 20 mg QDAY [facility] Administration Heparin Sodium (Porcine) 5,000 unit 03/31/20 07:00 04/01/20 07:30 Heparin SUB-Q 5,000 unit Q8H [facility] Administration Sodium Chloride 1,000 mls @ 125 mls/hr 03/31/20 03:45 03/31/20 21:02 Nacl 0.9% 1000 Ml IV 125 mls/hr DIRECT [facility] Administration Ceftriaxone Sodium 2 gm in 100 mls @ 200 mls/hr 03/31/20 10:00 04/01/20 09:35 Rocephin/Ns 2 Gm/100 Ml IV 200 mls/hr Q24HR [facility] Administration Protocol Azithromycin 500 mg/ Sodium 250 mls @ 250 mls/hr 03/31/20 10:00 04/01/20 09:35 Chloride IV 250 mls/hr Q24HR [facility] Administration Protocol Sodium Chloride 1,000 mls @ 100 mls/hr 03/31/20 16:30 Nacl 0.9% 1000 Ml IV 04/02/20 02:29 DIRECT [facility] Magnesium Hydroxide 30 ml 03/31/20 03:44 Milk Of Magnesia PO Q4H PRN Constipation Methadone HCl 100 mg 03/31/20 18:30 04/01/20 09:58 Dolophine PO 100 mg DAILY [facility] Administration Ondansetron HCl 4 mg 03/31/20 03:44 Zofran IV Q8H PRN Nausea And Vomiting Sodium Chloride 10 ml 03/31/20 10:00 04/01/20 09:36 Sodium Chloride Flush Syringe 10 Ml IV 10 ml BID [facility] Administration Sodium Chloride 10 ml 03/31/20 03:44 Sodium Chloride Flush Syringe 10 Ml IV PRN PRN LINE FLUSH Nutrition/Malnutrition Assess - Dietary Evaluation Nutrition/Malnutrition Findings: Nutrition Notes Start: 03/31/20 09:51 Freq: Status: Active Protocol: Document 03/31/20 09:51 LM (Rec: 03/31/20 09:55 LM [id number]) Nutrition Notes Need for Assessment generated from: MD Order Initial or Follow up Brief Note Other Pertinent Diagnosis Suspected COVID-19, asthma, depression/schizophrenia, ARF Current Diet Cardiac Height 6 ft 3 in Weight 158.757 kg [place] Body Weight (kg) 89.09 BMI 43.7 Weight Status Morbidly Obese Subjective/Other Information MD consult for diet education for BMI >40. Unable to reach pt. Nutrition Intervention Follow-Up By: 04/03/20 Additional Comments F/U for diet ed needs
[2020-04-01 12:16] VITALS: BP 113/55
--- NOTE | 2020-04-01 12:39 | Progress Note ---
Assessment and Plan Acute hypoxemic respiratory failure. Bilateral pneumonia. Possible COVID-19 infection. Morbid obesity. SIRS; probable early sepsis. History of asthma. Schizophrenia. History of depression. History of chronic pain. Anemia that is microcytic. Elevated D-dimer. Lactic acidosis. OHS with compensated hypercapnia - continue to wean supplemental oxygen to keep O2 sats > 90% - continue Bronchodilators (HERMELINDA) with pulm hygiene per RT - prn analgesia per pain score - avoid nephrotoxins, renally dose all medications - mobility protocols to prevent pressure ulcers - PT/OT as tolerated - accuchecks with glycemic control per SSI for target blood glucose < 180 mg/dL - Smoking cessation strongly counseled at the bedside - home oxygen evaluation at discharge - GI & VTE prophylaxis - Flu & pneumovax per protocol - Pulmonary out patient follow up for PFTs and optimization of respiratory status - continue other care per attending / other consultants ... re-evaluate in am & prn Subjective Date of service: 04/01/20 Principal diagnosis: Ac. hypoxemic resp failure; Jm. PNA; PUI COVID-19; Morbid obesity; OHS Interval history: Patient is seen today for: Ac. hypoxemic resp failure; Jm. PNA; PUI COVID-19; Morbid obesity; SIRS; Asthma; Schizophrenia; OHS with compensated hypercapnia Seen and examined at bedside; 24hour events reviewed; nursing and respiratory care staff consulted; no adverse overnight events reported to me; resting peacefully in bed; Objective Vital Signs - 12hr 04/01/20 04/01/20 04/01/20 01:00 02:00 03:00 Temperature Pulse Rate 102 H 87 87 Pulse Rate [ Bilateral] Pulse Rate [ From Monitor] Respiratory 13 16 12 Rate Respiratory Rate [Bilateral ] Blood Pressure 119/50 122/99 122/99 O2 Sat by Pulse 89 89 90 Oximetry 04/01/20 04/01/20 04/01/20 04:00 05:00 06:00 Temperature 98.2 F Pulse Rate 98 H 84 93 H Pulse Rate [ Bilateral] Pulse Rate [ From Monitor] Respiratory 14 10 L 11 L Rate Respiratory Rate [Bilateral ] Blood Pressure 122/99 122/99 117/61 O2 Sat by Pulse 89 89 90 Oximetry 04/01/20 04/01/20 04/01/20 07:00 08:00 08:02 Temperature 98.0 F Pulse Rate 91 H 88 Pulse Rate [ 89 Bilateral] Pulse Rate [ 103 H From Monitor] Respiratory 11 L 19 Rate Respiratory 11 L Rate [Bilateral ] Blood Pressure 117/61 117/61 O2 Sat by Pulse 89 92 93 Oximetry 04/01/20 04/01/20 04/01/20 08:40 09:00 09:58 Temperature Pulse Rate 95 H Pulse Rate [ Bilateral] Pulse Rate [ From Monitor] Respiratory 12 15 Rate Respiratory Rate [Bilateral ] Blood Pressure 102/50 O2 Sat by Pulse 92 93 Oximetry 04/01/20 04/01/20 04/01/20 10:00 11:00 12:00 Temperature 96.3 F L Pulse Rate 94 H 97 H 88 Pulse Rate [ Bilateral] Pulse Rate [ 89 From Monitor] Respiratory 13 12 16 Rate Respiratory Rate [Bilateral ] Blood Pressure 103/52 103/52 113/55 O2 Sat by Pulse 91 90 90 Oximetry CBC and BMP: 04/01/20 04:49 04/01/20 04:49 ABG, PT/INR, D-dimer: ABG ABG pH 7.359 pH Units (7.350-7.450) 03/31/20 01:30 ABG pCO2 50.9 mm Hg 03/31/20 01:30 ABG pO2 163.5 mm Hg (80.0-90.0) H 03/31/20 01:30 ABG O2 Saturation 98.9 % (95.0-99.0) 03/31/20 01:30 PT/INR, D-dimer PT 13.5 Sec. (12.2-14.9) 04/01/20 04:49 INR 1.02 (0.87-1.13) 04/01/20 04:49 D-Dimer 528.56 ng/mlDDU (0-234) H 03/31/20 01:22 Abnormal lab findings: Abnormal Labs 03/31/20 03/31/20 03/31/20 01:22 01:22 01:22 WBC 16.3 H Hgb 10.7 L Hct 33.3 L MCV 81 L MCH 26 L MCHC RDW 15.7 H Lymph % (Auto) 10.4 L [place] # 1.1 H Seg Neutrophils % 80.4 H Seg Neutrophils # 13.1 H APTT 21.2 L D-Dimer 528.56 H ABG pO2 ABG HCO3 ABG Hemoglobin Sodium 135 L Chloride 96.4 L Creatinine 0.5 L Glucose 233 H Lactic Acid ALT 71 H Lactate Dehydrogenase 274 H C-Reactive Protein 2.50 H Albumin 3.5 L Salicylates Acetaminophen 03/31/20 03/31/20 03/31/20 01:22 01:22 01:30 WBC Hgb Hct MCV MCH MCHC RDW Lymph % (Auto) [place] # Seg Neutrophils % Seg Neutrophils # APTT D-Dimer ABG pO2 163.5 H ABG HCO3 28.0 H ABG Hemoglobin 10.8 L Sodium Chloride Creatinine Glucose Lactic Acid ALT Lactate Dehydrogenase C-Reactive Protein Albumin Salicylates < 0.3 L Acetaminophen < 5.0 L 03/31/20 03/31/20 03/31/20 05:55 07:29 09:25 WBC Hgb Hct MCV MCH MCHC RDW Lymph % (Auto) [place] # Seg Neutrophils % Seg Neutrophils # APTT D-Dimer ABG pO2 ABG HCO3 ABG Hemoglobin Sodium Chloride Creatinine Glucose Lactic Acid 3.10 H* 3.40 H* 3.30 H* ALT Lactate Dehydrogenase C-Reactive Protein Albumin Salicylates Acetaminophen 04/01/20 04/01/20 04:49 04:49 WBC 19.1 H Hgb 9.7 L Hct 30.9 L MCV 82 L MCH 26 L MCHC 31 L RDW 15.5 H Lymph % (Auto) 8.7 L [place] # 1.2 H Seg Neutrophils % 85.0 H Seg Neutrophils # 16.2 H APTT D-Dimer ABG pO2 ABG HCO3 ABG Hemoglobin Sodium Chloride Creatinine 0.5 L Glucose 118 H Lactic Acid ALT Lactate Dehydrogenase C-Reactive Protein Albumin Salicylates Acetaminophen
== END 2020-04-01 13:30 | disposition left against medical advice (07) | DRG 189 ==
LOC: ED 00:26 → IMCU 02:26
PROVIDERS: ADMIT Internal Medicine Geriatric Medicine; ATTEND Internal Medicine
PROC: 4A033R1 Measurement of Arterial Saturation, Peripheral, Percutaneous Approach (ICD-10-PCS; principal; 2020-03-31)
PROC: 5A09357 Assistance with Respiratory Ventilation, Less than 24 Consecutive Hours, Continuous Positive Airway Pressure (ICD-10-PCS; 2020-03-31)
DX: J96.01 Acute respiratory failure with hypoxia (principal); J18.9 Pneumonia, unspecified organism; G89.29 Other chronic pain; M54.9 Dorsalgia, unspecified; D64.9 Anemia, unspecified; R65.10 Systemic inflammatory response syndrome (SIRS) of non-infectious origin without acute organ dysfunction; E87.2 Acidosis; E66.2 Morbid (severe) obesity with alveolar hypoventilation; J45.909 Unspecified asthma, uncomplicated; F32.9 Major depressive disorder, single episode, unspecified; F20.9 Schizophrenia, unspecified; Z68.41 Body mass index [BMI] 40.0-44.9, adult; Z91.048 Other nonmedicinal substance allergy status; Z88.6 Allergy status to analgesic agent; Z03.818 Encounter for observation for suspected exposure to other biological agents ruled out
CPT/HCPCS: 36415; 71045; 80048; 80053; 80320; 81001; 82140; 82728; 82803; 83615; 83880; 84145; 85025; 85379; 85610; 85730; 86140; 87040; 93005; 94640; 94644; 94760; G0378; G0480; J0456; J0696; J1644; J7030; J7050; U0003-CS